=== PATIENT | female | born 1965 | race Hispanic/Latino ===

== ENCOUNTER → 2024-06-01 10:35 | Outpatient (REF) | payer OTHER, SELFPAY ==
[2024-06-01 12:36] LABS: ALT (SGPT) 19 U/L (0-35); AST (SGOT) 22 U/L (14-36); Albumin 4.4 g/dl (3.5-5.0); Alkaline Phosphatase 71 U/L (38-126); Total Bilirubin 0.3 mg/dl (0.2-1.3); Total Protein 7.4 g/dl (6.3-8.2)
== END ==
LOC: REG 10:35
PROVIDERS: ATTENDING PHYSICIAN Podiatrist Foot & Ankle Surgery
DX: Z79.899 Other long term (current) drug therapy (principal)
CPT/HCPCS: 36415; 80076

== ENCOUNTER 2024-08-18 16:27 | Emergency (ER) | payer OTHER, SELFPAY ==
[2024-08-18 16:27] VITALS: BMI 31.6
[2024-08-18 16:32] VITALS: BP 156/92
--- NOTE | 2024-08-18 17:33 | ED.GENMED ---
History of Present Illness
<Coleen Valerio PA-C - Last Filed: 08/18/24 20:11>
General
Chief Complaint: Skin Problem
Source: patient
Exam Limitations: none
Time Seen by Provider: 08/18/24 17:22
History of Present Illness
History of Present Illness:
59yoF with no significant past medical history presenting with her daughter for evaluation of left thigh pain and discoloration. Pain started yesterday without any known trauma or inciting incident. She woke up this morning and noticed that her
left inner thigh had some skin changes and appeared a purplish color. The area remains painful today. She denies any fevers, chills, difficulty urinating. No prior history of diabetes and she does not currently take any medications.
Phy Exam
<Coleen Valerio PA-C - Last Filed: 08/18/24 20:11>
General Physical Exam
General Presentation: well appearing and no apparent distress
General age: appears stated age
General Skin: warm and dry
General Habitus: normal
General Mental: alert
ENT Exam
ENT Exam: normocephalic
Pulmonary Exam
Pulmonary Exam: no respiratory distress
Neurological Exam
Neurological Exam: alert
[place] Coma Scale
Eye Opening: Spontaneous
Verbal Response: Oriented
Motor Response: Obeys Commands
GCS Total Score: 15
Skin Exam
Skin Exam: warm/dry and other (L thigh: There is a large area of purplish discoloration noted to the inner thigh. Area is tender to cough. Does not thuan. Does not extend to perineum. No crepitus, fluctuance, or pain out of proportion. )
Psychiatric Exam
Psychiatric Exam: normal mood/affect
<Darryl Medina DO - Last Filed: 08/18/24 19:55>
[place] Coma Scale
GCS Total Score: 15
Course
<Coleen Valerio PA-C - Last Filed: 08/18/24 20:11>
Orders/Labs/Results
Orders:
Orders
08/18/24 17:30
Venous Doppler Lwr Ext Left [US Periph Venous LOWER Ext LT] Urgent
Comment:
Reason For Exam: L thigh swelling/skin changes
08/18/24 17:33
Complete Blood Count/With Diff Urgent
Comprehensive Metabolic Panel Urgent
08/18/24 17:44
Lactate Level [Lactic Acid] Urgent
08/18/24 19:49
Cephalexin Monohydrate [Keflex] 500 mg PO NOW STA
Sulfamethox./Trimethoprim Ds [Bactrim Ds 800 mg/160 mg] 1 tablet PO NOW STA
Abnormal Lab Results
08/18/24
17:33
Glucose 134 H mg/dl
(70-99)
08/18/24 17:33
08/18/24 17:33
Vital Signs
Initial and Last Documented VS:
Initial Vital Signs
Temp Pulse Resp BP Pulse Ox
99.0 F 76 18 156/92 98
08/18/24 16:32 08/18/24 16:32 08/18/24 16:32 08/18/24 16:32 08/18/24 16:32
Last Documented Vital Signs
Temp Pulse Resp BP Pulse Ox
99.0 F 71 16 134/82 99
08/18/24 16:32 08/18/24 18:00 08/18/24 18:00 08/18/24 18:00 08/18/24 18:00
<Darryl Medina DO - Last Filed: 08/18/24 19:55>
Orders/Labs/Results
Orders:
Orders
08/18/24 17:30
Venous Doppler Lwr Ext Left [US Periph Venous LOWER Ext LT] Urgent
Comment:
Reason For Exam: L thigh swelling/skin changes
08/18/24 17:33
Complete Blood Count/With Diff Urgent
Comprehensive Metabolic Panel Urgent
08/18/24 17:44
Lactate Level [Lactic Acid] Urgent
08/18/24 19:49
Cephalexin Monohydrate [Keflex] 500 mg PO NOW STA
Sulfamethox./Trimethoprim Ds [Bactrim Ds 800 mg/160 mg] 1 tablet PO NOW STA
Abnormal Lab Results
08/18/24
17:33
Glucose 134 H mg/dl
(70-99)
08/18/24 17:33
08/18/24 17:33
Vital Signs
Initial and Last Documented VS:
Initial Vital Signs
Temp Pulse Resp BP Pulse Ox
99.0 F 76 18 156/92 98
08/18/24 16:32 08/18/24 16:32 08/18/24 16:32 08/18/24 16:32 08/18/24 16:32
Last Documented Vital Signs
Temp Pulse Resp BP Pulse Ox
99.0 F 71 16 134/82 99
08/18/24 16:32 08/18/24 18:00 08/18/24 18:00 08/18/24 18:00 08/18/24 18:00
<Coleen Valerio PA-C - Last Filed: 08/18/24 20:11>
MDM/Problems Addressed
Differential Diagnosis Includes:
59yoF here with L thigh pain and discoloration x 1 day. No trauma. No f/c or systemic symptoms. VSS. She is well appearing in no distress. There is a large area of purplish discoloration noted to the L inner thigh that is tender to touch. No
perineal involvement, crepitus, or pain out of proportion to suggest NSTI. Differential diagnosis includes: contusion, cellulitis, DVT
Initial ED plan: Check CBC, CMP, lactate, and venous duplex.
<Coleen Valerio PA-C - Last Filed: 08/18/24 20:11>
*Critical Care Note
Total Time (30-74mins, 75-104mins- exclusive of procedures): Not Applicable
<Darryl Medina DO - Last Filed: 08/18/24 19:55>
Update Note
Update Note:
Ultrasound negative for DVT. Given the skin changes and the lymphadenopathy seen on ultrasound, will start Keflex and Bactrim. Discussed calling PCP tomorrow for expedited follow-up
ED Attending Note
<Coleen Valerio PA-C - Last Filed: 08/18/24 20:11>
-
Portions of this chart may have been created with voice recognition software.� Occasional wrong word or��sound alike� substitutions may have occurred due to the inherent limitations of voice recognition software.
<Darryl Medina DO - Last Filed: 08/18/24 19:55>
ED Attending Note
Patient seen and examined by attending physician: Yes
I performed the substantive portion of visit, reviewed & personally made and approve the management plan that is documented in note by myself or GUY.: Yes
ED Attending Note:
I have seen and evaluated the patient with a [id number] encounter. I have spoken to the advance practicer provider and involved in the medical history, the physical exam, medical decision making.
Evaluation and management service: agree unless noted differently below.
Results interpretation: agree unless noted differently below.
Focused HPI: 59-year-old female presenting with pain to her left inner thigh. She noticed it yesterday. She denies any trauma or new creams
Physical exam: Sitting bed comfortably. Erythema noted to left medial thigh which spares inguinal canal. It is mildly tender. No crepitus.
Of note, the PA note mentioned that the area does not thuan. I do appreciate blanching on my exam
Medical Decision Making: Labs without clinically significant abnormality. Will obtain ultrasound rule out DVT. If ultrasound negative, will start antibiotics with concern for cellulitis
Discharge Plan
Departure
Patient Disposition: Home (Routine Discharge)
Date of Disposition: 08/18/24
Time of Disposition: 19:54
Patient with high blood pressure during this ER visit?: No
Discharge Problem:
Cellulitis
Prescriptions:
New
sulfamethoxazole-trimethoprim [Bactrim DS] 800-160 mg tablet
1 tab PO BID 7 Days Qty: 14 0RF
cephalexin 500 mg capsule
500 mg PO BID 7 Days Qty: 14 0RF
Referrals:
UNKNOWN - PT DOES,NOT KNOW [Family Provider] -
Stand Alone Forms: Return to Work
Activity Restrictions/Additional Instructions:
Watch for worsening signs of infection: fever over 100.5', increasing pain, red streaks around wound, swelling, or increasing drainage of pus. If any of these happen, return to ED promptly. Make sure that you take all your antibiotics as directed
and finish your prescription even if you feel better before the bottle is empty.
Please follow up with your doctor at the first available appointment, preferably this week.
Thank you for choosing [facility].
Interventions
Interventions:
*Risk Screen - Suicide Last Done: 08/18/24 16:32
*General Assessment Last Done: 08/18/24 16:32
*Neglect/Abuse Screening Last Done: 08/18/24 17:27
*ED- Fall Risk Assessment Last Done: 08/18/24 17:27
*ED COVID-19 Vaccine History Last Done: 08/18/24 16:32
*Nursing Disposition Last Done: 08/18/24 20:07
ED-Skin Assessment Last Done: 08/18/24 17:27
Discharge Date and Time
Discharge Date/Time: 08/18/24 20:08
Print Language: ROMANSH
[2024-08-18 18:00] VITALS: BP 134/82
[2024-08-18 18:03] LABS: ALT (SGPT) 25 U/L (0-35); AST (SGOT) 22 U/L (14-36); Albumin 4.3 g/dl (3.5-5.0); Alkaline Phosphatase 72 U/L (38-126); Blood Urea Nitrogen 15 mg/dl (7-17); Calcium 9.2 mg/dl (8.4-10.2); Carbon Dioxide 30 mmol/L (22-30); Chloride 106 mmol/L (98-107); Estimated Creatinine Clearance 91 ml/min; Glucose 134 mg/dl (70-99); Potassium 3.9 mmol/L (3.5-5.1); Sodium 141 mmol/L (135-145); Total Bilirubin 0.3 mg/dl (0.2-1.3); eGFR > 60.00
[2024-08-18 18:07] LABS: Lactic Acid 1.1 mmol/L (0.7-2.0)
[2024-08-18 18:10] LABS: % Basophils 1.8 % (0-2); % Immature Granulocytes 0.2 % (0-0.5); % Lymphocytes 43.2 % (20.5-51.1); % Monocytes 7.3 % (1.7-9.3); % Neutrophils 44.5 % (42.2-75.2); Absolute Basophils 0.1 10^3/uL (0-0.2); Absolute Eosinophils 0.2 10^3/uL (0-0.7); Absolute Lymphocytes 2.2 10^3/uL (1.2-3.4); Absolute Monocytes 0.4 10^3/uL (0.1-0.6); Absolute Neutrophils 2.3 10^3/uL (1.4-6.5); Hemoglobin 12.8 g/dL (12.0-16.0); Mean Corp Hgb Conc. 34.6 g/dL (33.0-37.0); Mean Corpuscular Hgb 29.1 pg (27.0-31.0); Mean Corpuscular Volume 84.1 fL (81.0-99.0); Mean Platelet Volume 9.5 fL (7.4-10.4); Nucleated Red Blood Cells % 0 %; Platelet Count 248 10^3/uL (130-400); Red Cell Dist. Width 12.9 % (11.5-14.5); White Blood Cell Count 5.1 10^3/uL (4.8-10.8)
[2024-08-18] MEDS: KEFLEX 500 MG PO (20:03)
[2024-08-18] MEDS: BACTRIM DS 800 MG/160 MG 1 TABLET PO (20:03)
== END 2024-08-18 20:08 | disposition home or self-care (01) ==
LOC: EMR 16:27
PROVIDERS: Physician Assistant; EMERGENCY PHYSICIAN Student in an Organized Health Care Education/Training Program
DX: L03.116 Cellulitis of left lower limb (principal)
CPT/HCPCS: 99284; 80053; 83605; 85025; 93971

== ENCOUNTER → 2024-12-07 09:39 | Outpatient (REF) | payer OTHER, SELFPAY ==
[2024-12-07 10:59] LABS: Hematocrit 39.6 % (37.0-47.0); Hemoglobin 13.3 g/dL (12.0-16.0); Mean Corp Hgb Conc. 33.6 g/dL (33.0-37.0); Mean Corpuscular Volume 85.9 fL (81.0-99.0); Platelet Count 276 10^3/uL (130-400); Red Cell Dist. Width 13.1 % (11.5-14.5)
[2024-12-07 11:20] LABS: ALT (SGPT) 21 U/L (0-35); AST (SGOT) 21 U/L (14-36); Albumin 4.5 g/dl (3.5-5.0); Alkaline Phosphatase 66 U/L (38-126); Blood Urea Nitrogen 16 mg/dl (7-17); Calcium 9.4 mg/dl (8.4-10.2); Carbon Dioxide 27 mmol/L (22-30); Chloride 106 mmol/L (98-107); Glucose 100 mg/dl (70-99); HDL Cholesterol 52 mg/dl; LDL Cholesterol, Calculated 127 mg/dl; Potassium 4.6 mmol/L (3.5-5.1); Sodium 139 mmol/L (135-145); Total Protein 7.5 g/dl (6.3-8.2); Very Low Density Lipoprotein 31 mg/dl (0-30); eGFR > 60.00
[2024-12-07 11:31] LABS: Vitamin D, 25-OH*** 32.9 ng/mL (30-80)
[2024-12-07 13:08] LABS: Glycohemoglobin (HgbA1c) 5.7 % (4.0-5.6)
== END ==
LOC: CLINIC 09:39
PROVIDERS: ATTENDING PHYSICIAN Nurse Practitioner Adult Health
DX: I10 Essential (primary) hypertension (principal); R73.03 Prediabetes; E78.2 Mixed hyperlipidemia; E55.9 Vitamin D deficiency, unspecified
CPT/HCPCS: 36415; 80053; 80061; 82306; 83036; 84443; 85027